=== PATIENT | female | born 2000 | race Caucasian/White ===

== ENCOUNTER 2018-12-18 11:17 | Emergency (ER) | payer MEDICAID, OTHER ==
[~2018-12-18] VITALS: Ht 167.6 cm; Wt 103.2 kg
[~2018-12-18 11:17] MED LIST: NOCURR
[2018-12-18] MEDS ORDERED: CYCL10 PO (11:27)
[2018-12-18] MEDS ORDERED: NAPR250T4 PO (11:27)
[2018-12-18 11:46] VITALS: BP 127/73
[2018-12-18] MEDS ORDERED: HYDROCODONE/ACETAMINOPHEN 5-325 MG TABLET PO ONE (12:00)
== END 2018-12-18 12:13 | disposition home or self-care (01) ==
LOC: EMS 11:18
DX: M54.5 Low back pain (principal); Z79.899 Other long term (current) drug therapy